=== PATIENT | female | born 1970 | race American Indian/Alaskan Native ===

== ENCOUNTER 2016-11-09 11:09 | Outpatient (CLI) | payer BC | END 2016-11-09 11:10 | disposition home or self-care (01) | LOC: MAMMO 11:09 | PROVIDERS: ATTEND Internal Medicine | DX: Z12.31 Encounter for screening mammogram for malignant neoplasm of breast (principal) | CPT/HCPCS: 77067; G0202 ==

== ENCOUNTER 2017-08-28 11:13 | Outpatient (CLI) | payer BC ==
--- NOTE | 2017-08-28 12:09 | XRay Report ---
RIGHT KNEE RADIOGRAPHS INDICATION: Pain and swelling. COMPARISON: 04/13/2011. FINDINGS: AP, lateral and oblique right knee radiographs again demonstrate intact articulation. Tibial spines, medial femoral and tibial corners and mild superior patellar pole degenerative spurring is new. Mild medial and patellofemoral compartment narrowing also now possible. No suprapatellar effusion. CONCLUSION: Interval development of right knee osteoarthrosis, as described. Thank you for the opportunity to participate in this patient's care.
== END 2017-08-28 11:14 | disposition home or self-care (01) ==
LOC: XRAY 11:13
PROVIDERS: ATTEND Radiology Neuroradiology
DX: M17.11 Unilateral primary osteoarthritis, right knee (principal); M25.861 Other specified joint disorders, right knee

== ENCOUNTER 2020-11-24 14:35 | Outpatient (CLI) | payer BC ==
[2020-11-24 15:06] LABS: Basophils # (Auto) 0.1 K/mm3 (0.0-0.1); Basophils % (Auto) 0.8 % (0.0-1.8); Eosinophils # (Auto) 0.2 K/mm3 (0.0-0.4); Eosinophils % (Auto) 3.1 % (0.0-4.3); Hematocrit 41.3 % (30.3-42.9); Hemoglobin 14.1 gm/dl (10.1-14.3); Lymphocytes # (Auto) 2.6 K/mm3 (1.2-5.4); Lymphocytes % (Auto) 41.3 % (13.4-35.0); Mean Corpuscular HGB Conc 34 % (30-34); Mean Corpuscular Volume 104 fl (79-97); Monocytes # (Auto) 0.7 K/mm3 (0.0-0.8); Monocytes % (Auto) 10.6 % (0.0-7.3); Platelet Count 392 K/mm3 (140-440); Red Blood Count 3.98 M/mm3 (3.65-5.03); Red Cell Distribution Width 13.3 % (13.2-15.2)
[2020-11-24 15:26] LABS: Alanine Aminotransferase 23 units/L (7-56); Albumin 4.2 g/dL (3.9-5); Blood Urea Nitrogen 18 mg/dL (7-17); Calcium 9.7 mg/dL (8.4-10.2); Chol/HDL Ratio 5.26 %; HDL Cholesterol 52 mg/dL (40-59); Hemolysis Index 2; LDL Cholesterol,Direct 221 mg/dL (50-130); Uric Acid 8.3 mg/dL (3.5-7.6)
[2020-11-24 15:30] LABS: BUN/Creatinine Ratio 30
== END 2020-11-24 14:36 | disposition home or self-care (01) ==
LOC: LAB 14:35
PROVIDERS: ATTEND Internal Medicine
DX: I10 Essential (primary) hypertension (principal); M10.9 Gout, unspecified
CPT/HCPCS: 36415; 80053; 80061; 84550; 85025

== ENCOUNTER 2021-02-22 12:28 | Outpatient (CLI) | payer BC | END 2021-02-22 12:29 | disposition home or self-care (01) | LOC: LAB 12:28 | PROVIDERS: ATTEND Internal Medicine | DX: M10.00 Idiopathic gout, unspecified site (principal) | CPT/HCPCS: 36415; 84550 ==